=== PATIENT | female | born 1940 | race Two or more races ===

== ENCOUNTER → 2024-08-01 | Outpatient (CLI) | payer MEDICARE, MEDICAID, SELFPAY ==
--- NOTE | 2024-08-01 11:15 | XR_ITS ---
Examination: Screening digital mammography, bilateral Computer aided detection 3-D breast Tomosynthesis, bilateral Date and time of exam: August 01, 2024 1108 hours Compared to mammograms dating to December 27, 2008 Indication: Screening Technique: Nonmagnified MLO, CC views of the breasts to been obtained, reconstructed from 3-D Tomosynthesis images. R2 computer aided detection program utilized for evaluation of suspicious masses and/or abnormal calcifications. 3-D Tomosynthesis images obtained. Findings: The breasts are heterogeneously dense, which may obscure small masses Benign calcifications. No interval suspicious masses Impression: BI-RADS category II: Benign Findings. Recommend 1 year follow-up mammogram.
== END | disposition home or self-care (01) ==
LOC: CDIM 11:00
PROVIDERS: Referring Provider Family Medicine; Visit Provider Family Medicine
DX: Z12.31 Encounter for screening mammogram for malignant neoplasm of breast (principal); R92.323 Mammographic fibroglandular density, bilateral breasts; R92.1 Mammographic calcification found on diagnostic imaging of breast
CPT/HCPCS: 77063; 77067

== ENCOUNTER 2025-01-04 20:34 | Inpatient (IN) | payer MEDICARE, MEDICAID, SELFPAY ==
[2025-01-04] VITALS (7 sets, daily range): BP systolic 158–178; BP diastolic 79–86; PULSE 85–102; RESP 14–99; TEMP 36.6–36.8; O2SAT 99–100; BMI 22.8
--- NOTE | 2025-01-04 20:45 | EDNOTE_ITS ---
Neuro Symptoms Deficit-RME/HPI General Chief Complaint: Neuro Symptoms/Deficit Stated Complaint: NUMBNESS TO FACE AND RIGHT LEG Time Seen by Provider: 01/04/25 20:46 Arrival date/time: 01/04/25 20:34 RME / HPI RME / HPI Narrative: DR. LONGORIA MAIN ED EVALUATION: 84 y/o female with Hx of HTN, CVA, and Aneurysm presents to ED c/o numbness to the tongue and oral cavity, pins and needles to the RLE, and possible right- sided weakness x just over 8.5 hours. Patient is on mediaction for HTN. No other concerns or complaints expressed at this time. Related Data Home Medications ?Medication ?Instructions ?Recorded ?Confirmed meloxicam 15 mg tablet 1 tab PO QDWM ##0 07/13/13 0 05/16/19 methimazole 5 mg tablet 1 tab PO BID ##0 07/13/13 misoprostol 200 mcg tablet 1 tab PO BID ##0 07/13/13 0 05/16/19 phenytoin sodium extended 100 mg 1 cap PO TID ##0 03/0 11/1905/16/19 capsule aspirin 81 mg chewable tablet 81 mg PO DAILY 05/16/19 09/13/21 calcium 600 mg (as 1 tab PO QDAY 05/16/1905/16 carbonate)-vitamin D3 20 mcg (800 unit) tablet (Caltrate with Vitamin D3) lorazepam 1 mg tablet 1 mg PO [id number] PRN Seizures 05/16/19 05/16/19 raloxifene 60 mg tablet 60 mg PO QDAY 05/16/1905/16 Allergies Allergy/AdvReac Type Severity Reaction Status Date / Time No Known Allergies Allergy Verified 09/13/21 21:44 Review of Systems Review of Systems Systems Reviewed: All systems reviewed, normal except as documented Past Medical History Past Medical History NEUROLOGIC: Positive Cerebrovascular Accident, Seizures and Epilepsy CARDIAC: Positive Aneurysm and Hypertension MUSCULOSKELETAL: Positive Arthritis ENDOCRINE: Positive Hyperthyroidism and Hypothyroidism OTHER HISTORY: Positive Hospitalization ED Exam Narrative Physical exam: Generally patient is alert elderly appearing female, eyes pupils equal round reactive to light face shows no facial asymmetry, neck shows no bruits, heart regular rate and rhythm, lungs clear to auscultation ankle bilaterally, abdomen soft bowel sounds present's and nontender, neurologic exam shows no facial asymmetry. Patient has no demonstrable focal motor deficits. Extremities show no edema. Course Course Course Narrative: CXR was ordered for determining the etiology of shortness of breath. 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 01/04/25 20:47 Active Continuous Pulse Oximetry NOW Care 01/04/25 20:47 Completed EKG (ED ONLY) *Do not use* NOW Care 01/04/25 20:47 Completed In and Out Catheter NEEDED Care 01/04/25 20:47 Active Insert IV NOW Care 01/04/25 20:47 Active NIH Stroke Scale now Care 01/04/25 20:47 Active NPO NOW Care 01/04/25 20:47 Active Neuro Check Q1HR Care 01/04/25 20:47 Active Nurse Swallow Screen x1 Care 01/04/25 20:47 Active Consult to Neurology / Tele-Neurology Routine Cons 01/04/25 20:[address] angio stroke protocol Stat Exams 01/04/25 20:[address] stroke protocol Stat Exams 01/04/25 20:47 Completed EKG (ED Only) Stat Exams 01/04/25 20:47 Ordered XR chest 1V portable Stat Exams 01/04/25 20:47 Taken CBC Stat Lab 01/04/25 20:53 Completed Comprehensive Metabolic Panel Stat Lab 01/04/25 20:53 Completed Drug Screen,Urine Stat Lab 01/04/25 20:47 Ordered Magnesium Stat Lab 01/04/25 20:53 Completed Partial Thromboplastin Time Stat Lab 01/04/25 20:53 Completed Prothrombin Time with INR Stat Lab 01/04/25 20:53 Completed Troponin I Stat Lab 01/04/25 20:53 Completed Urinalysis, C/S if Indicated Stat Lab 01/04/25 20:47 Ordered Aspirin Med 01/04/25 21:34 Discontinued 325 mg PO X1 ONE Clopidogrel [Plavix] Med 01/04/25 21:34 Discontinued 300 mg PO X1 ONE Ondansetron Inj [Zofran Inj] Med 01/04/25 20:47 Active 4 mg IVP Q4HR PRN Oxygen Delivery NOW RT 01/04/25 20:47 Active Vital Signs Vital signs: Vital Signs Temperature 98.2 F 01/04/25 20:48 Pulse Rate 102 H 01/04/25 20:48 Respiratory Rate 16 01/04/25 20:48 Blood Pressure 158/79 H 01/04/25 20:48 Pulse Oximetry (%) 99 01/04/25 20:48 Oxygen Delivery Method Room Air 01/04/25 20:48 Neuro Symptoms / Deficit MDM Narrative MDM Narrative:: Scribe Attestation: I, Masha Mathews, am scribing for and in the presence of Dr. Longoria. Provider Notation: Although this document has been carefully reviewed, there may still be some phonetic and other typographical errors. These errors are purely grammatical due to imperfections in the software program and should not be construed in any way to? compromise the substance of the patient's medical care during this visit. I am seeing this patient approximately 8 hours and 45 minutes since her last known normal. Stroke alert was called. Head CT was negative. CT angio of the head and neck showed no large vessel occlusion. Blood sugar was 83. Blood pressure is 156/73. Patient was seen and evaluated by the stroke neurologist who recommends giving the patient aspirin and loading with 300 mg of Plavix p.o. Plavix and aspirin were ordered for the patient here in the emergency room. I discussed this case with the hospitalist and the patient will be admitted the hospital for further treatment and evaluation and undergo MRI in the morning. I interpreted all labs. EKG done at 8:48 PM shows sinus tachycardia at a rate of [address] segment elevation. There is very slight ST segment depression in leads V5 and V6. Patient data External records reviewed:: [facility] previous records (Reviewed prior ED records from 04/29/22. Patient was seen for Seizures.) Clinical information provided by:: patient and family Social determinants that could affect healthcare access:: none Patient has the following chronic illnesses:: Seizures, Epilepsy, Hypertension, Arthritis, Hypothyroidism How is presenting disease/condition affected by chronic disease/condition?: exacerbated by Evaluation data The following diagnostics were reviewed and interpreted by me:: lab results, radiology exam(s) and EKG tracing(s) Lab and/or radiology exams considered but not ordered:: None Interpretation Summary: RADIOLOGY Head/Brain CT: Findings: No significant ventricular enlargement. Low-density area in the left frontal parietal lobe evident on the prior CT scan, axial image 16, September 23, 2021 Intra-axial or extra-axial hemorrhage density is not seen. No mass effect or midline shift Basal cisterns are not remarkable. Fourth ventricle is midline. Cranial vault intact. Impression: No interval acute hemorrhage, mass effect or midline shift compared to September 13, 2021 Consider brain MRI MRA without contrast, stroke protocol, follow-up. Head/Neck CTA: Findings: Thyromegaly with numerous bilateral thyroid nodules No significant common carotid carotid bifurcation or internal carotid artery stenoses. Dominant left vertebral artery in the neck with no critical stenoses Intracranial vertebral arteries basilar artery posterior cerebral branches fill with no large vessel occlusions Juxtasellar internal carotid arteries demonstrate moderate calcification No large vessel occlusions involving M1 segments middle cerebral arteries trifurcation middle cerebral arteries or anterior cerebral arteries Impression: No significant neck arterial stenoses No cerebral large vessel arterial occlusions or thrombus Chest X-Ray: Medications / Prescriptions Medications or Prescriptions considered but not ordered:: None Medication administrations:: Medication Administration History Ondansetron HCl (Ondansetron Inj 2 Mg/Ml Inj 2 Ml) 4 mg IVP Q4HR PRN PRN Reason: NAUSEA OR VOMITING Stop: 02/03/25 20:46 Discontinued Medications Aspirin (Aspirin 325 Mg Tablet) 325 mg PO X1 ONE Stop: 01/04/25 21:35 Clopidogrel Bisulfate (Clopidogrel Bisulfate 75 Mg Tablet) 300 mg PO X1 ONE Stop: 01/04/25 21:35 See above if any. Consultations Consultation(s) initiated? (list below): Yes Consultation #1 (Physician, Specialty, Details): Tele-neurologist made aware of the patient?s HPI, PMHx, lab and/or radiology results. Discussed treatment plan. Time: 21:27 Consultation #2 (Physician, Specialty, Details): Hospitalist made aware of the patient?s HPI, PMHx, lab and/or radiology results. Treatment plan was discussed. Will admit for further evaluation and management. Accepts patient for admission. Time: 21:35 Diagnosis Neuro Differential Diagnosis: delirium, subarachnoid hemorrhage, peripheral neuropathy, cerebrovascular accident and transient cerebral ischemia Most likely diagnosis given after review of the tests above:: None Admission Indicated Admission indicated?: indicated Admission Request Was there a request for admission?: Yes Admission Attestation Admission request attestation: Discussed case with [] from Hospitalist service regarding admission. Discussed patients ED course, exam findings, labs, and radiology results. The Hospitalist [agrees,declines] to accept the patient for admission. Disposition Plan Disposition Plan: Admit Critical Care Time Critical Care Time Critical Care Time: Yes Total Critical Care Time (min.): 35 Attestation: Excluding other billable procedures Discharge Plan Plan Patient Disposition: Admit Acute Care w/in Hospital Prescriptions/Referrals Prescriptions/Med Rec: No Action phenytoin sodium extended 100 MG capsule 1 cap PO TID Qty: 0 meloxicam 15 MG tablet 1 tab PO QDWM Qty: 0 misoprostol 200 MCG tablet 1 tab PO BID Qty: 0 methimazole 5 MG tablet 1 tab PO BID Qty: 0 lorazepam 1 mg Tablet 1 mg PO [id number] PRN (Reason: Seizures) aspirin 81 mg Tablet,Chewable 81 mg PO DAILY raloxifene 60 mg Tablet 60 mg PO QDAY calcium carbonate-vitamin D3 [Caltrate with Vitamin D3] 600 mg(1,500mg) -800 unit Tablet 1 tab PO QDAY Referrals: Xavier Hayward MD [Primary Care Provider] - In 1 week Problem List Clinical Impression: Acute CVA (cerebrovascular accident) Patient/Caregiver Discharge Instructions Print Language: Irish Stand Alone Forms: Amry Ann Award Info., Patient Portal Info Letter
--- NOTE | 2025-01-04 20:47 | XR_ITS ---
Examination: AP chest single view Technique: AP portable upright chest single view, comparison July 30, 2016 Indications: Stroke alert, chest pain shortness of breath today. Findings: No aspiration pneumonia No pulmonary edema Stable prominent superior mediastinum Significant osteopenia Impression: Negative for aspiration pneumonia
--- NOTE | 2025-01-04 20:47 | EKG_ITS ---
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
--- NOTE | 2025-01-04 20:47 | XR_ITS ---
Examination: CT brain head without contrast. 2-D sagittal coronal reconstructions Date and time of exam:January 04, 2025, 2058 hrs., Comparison September 13, 2021 Indications: Stroke alert, onset numbness to the face and right leg dizziness weakness beginning 9 hours ago CTDI: vol (mGy):45.4 DLP: (mGycm):898 Technique: Multiple CT axial sections of the brain have been obtained, 5 mm slice thickness. Contrast has not been administered. 2-D sagittal, coronal reconstructions have been obtained Low dose protocols were performed. One or more of the following dose reduction techniques were used; automated exposure control, adjustment of the mA and/or KV according to patient size, use of iterative reconstruction technique. Findings: No significant ventricular enlargement. Low-density area in the left frontal parietal lobe evident on the prior CT scan, axial image 16, September 23, 2021 Intra-axial or extra-axial hemorrhage density is not seen. No mass effect or midline shift Basal cisterns are not remarkable. Fourth ventricle is midline. Cranial vault intact. Impression: No interval acute hemorrhage, mass effect or midline shift compared to September 13, 2021 Consider brain MRI MRA without contrast, stroke protocol, follow-up
--- NOTE | 2025-01-04 20:47 | XR_ITS ---
Examination: CTA carotids with intravenous contrast CTA brain, head with intravenous contrast. 2-D sagittal, coronal reconstructions. 3-D reconstructions. Exam date and time: January 04, 2025, 2100 hrs. Indications: Stroke alert, onset focal neurologic deficit including numbness right face and right leg weakness dizziness beginning 9 hours ago. CTDI: vol (mGy) 16.85 DLP: (mGycm) 511 Technique: Multiple CTA axial brain, head carotid images post intravenous contrast injection 75 cc, [id number]. 2-D sagittal, coronal reconstructions. 3-D reconstructions, 3-D post processing including vascular maximum intensity projection images. Low dose protocols were performed. One or more of the following dose reduction techniques were used; automated exposure control, adjustment of the mA and/or KV according to patient size, use of iterative reconstruction technique. Findings: Thyromegaly with numerous bilateral thyroid nodules No significant common carotid carotid bifurcation or internal carotid artery stenoses. Dominant left vertebral artery in the neck with no critical stenoses Intracranial vertebral arteries basilar artery posterior cerebral branches fill with no large vessel occlusions Juxtasellar internal carotid arteries demonstrate moderate calcification No large vessel occlusions involving M1 segments middle cerebral arteries trifurcation middle cerebral arteries or anterior cerebral arteries Impression: No significant neck arterial stenoses No cerebral large vessel arterial occlusions or thrombus
--- NOTE | 2025-01-04 20:47 | PC.NURSE ---
Case Consult 01/04/2025 20:46:46 [facility] Case # [id number] has been created.
[2025-01-04 21:13] LABS: Basophils # (Auto) 0.0 Thou/mm3 (0.0-0.2); Basophils % (Auto) 0 % (0-2.5); Eosinophils # (Auto) 0.0 Thou/mm3 (0.0-0.5); Eosinophils % (Auto) 1 % (0-10); Hematocrit 34.4 % (36.0-46.0); Hemoglobin 11.8 g/dL (12.0-16.0); Immature Granulocytes Auto 0.02 Thou/mm3 (0.00-0.00); Lymphocytes # (Auto) 1.6 Thou/mm3 (1.0-4.8); Lymphocytes % (Auto) 28 % (10-50); Mean Corpuscular HGB Conc 34.3 g/dl (31.0-37.0); Mean Corpuscular Hemoglobin 31.1 pg (25.0-35.0); Mean Corpuscular Volume 91 fL (80-100); Monocytes # (Auto) 0.5 Thou/mm3 (0.0-0.8); Monocytes % (Auto) 8 % (0-12); Neutrophils # (Auto) 3.6 Thou/mm3 (1.8-7.7); Neutrophils % (Auto) 63 % (37-80); Nucleated Red Blood Cell # 0.00 Thou/mm3 (0.00-0.00); Nucleated Red Blood Cell % 0 /100 WBC (0); Platelet Count 102 Thou/mm3 (140-440); RDW Standard Deviation 41.1 fL (36.4-46.3); Red Blood Count 3.80 Miln/mm3 (4.00-5.20); White Blood Count 5.7 Thou/mm3 (3.6-11.0)
[2025-01-04 21:25] LABS: INR 0.9 (0.9-1.3); Partial Thromboplastin Time 20.2 Seconds (22.0-36.0); Prothrombin Time 10.4 Seconds (9.0-12.2)
[2025-01-04 21:30] LABS: Alanine Aminotransferase < 7 U/L (10-49); Albumin, Serum 4.2 gm/dL (3.4-4.8); Albumin/Globulin Ratio 1.5 (1.2-2.2); Alkaline Phosphatase 134 U/L (46-116); Anion Gap 8 (7-16); Aspartate Amino Transferase 31 U/L (0-34); BUN/Creatinine Ratio 7 Ratio (12-20); Bilirubin,Total 0.3 mg/dL (0.3-1.2); Blood Urea Nitrogen < 5 mg/dL (9-23); Calcium 9.7 mg/dL (8.3-10.6); Calcium (Corrected) 9.7 mg/dL (8.5-10.1); Carbon Dioxide 25.7 mMol/L (20.0-31.0); Chloride 102 mMol/L (98-107); Creatinine (Component) 0.7 mg/dL (0.6-1.3); Estimated Creatinine Clearance 43.7 mL/min (>60); Globulin 2.8 gm/dL (2.3-3.5); Glucose 79 mg/dL (74-106); Magnesium 1.9 mg/dL (1.6-2.6); Osmolality,Calculated 268 (275-295); Potassium 4.2 mMol/L (3.4-5.1); Sodium 136 mMol/L (136-145); Total Protein 7.0 gm/dL (5.7-8.2); Troponin I < 0.020 ng/mL (0.0-0.045); eGFR > 60 See Note
--- NOTE | 2025-01-04 21:31 | PD.TNEURO ---
Tele Neuro Consultation Consultation Date 01/04/25 Most Recent Vital Signs Last Vital Signs Temp 98.2 F 01/04/25 20:48 Pulse 89 01/04/25 20:56 Resp 16 01/04/25 20:48 BP 158/79 H 01/04/25 20:48 Pulse Ox 99 01/04/25 20:48 O2 Del Method Room Air 01/04/25 20:48 Laboratory-Coagulation Panel PT 10.4 Seconds (9.0-12.2) 01/04/25 20:53 INR 0.9 (0.9-1.3) 01/04/25 20:53 APTT 20.2 Seconds (22.0-36.0) L 01/04/25 20:53 Consultation Narrative [facility] Patient Name:???Annabelle Almaraz Date of :???1940 Identification Number:??? Date of Service:???01/04/2025 20:46:46 Diagnosis: ?G45.9 - Transient cerebral ischemic attack, unspecified Impression: ?84 yo F with history of stroke (with baseline aphasia per family) and epilepsy who presented for evaluation of acute onset of dizziness and right-sided numbness/weakness. Her symptoms improved, and her neurologic exam was grossly unremarkable (other than chronic disorientation and mild anomia). Overall, her symptoms are suggestive of possible resolving stroke/TIA. Recommend initiation of DAPT and admission for further stroke/TIA workup s discussed below. Our recommendations are outlined below. Recommendations: ? Stroke/Telemetry Floor ? Neuro Checks (Q4) ? Bedside Swallow Eval ? DVT Prophylaxis ? IV Fluids, Normal Saline ? Head of Bed 30 Degrees ? Euglycemia and Avoid Hyperthermia (PRN Acetaminophen) ? Bolus with Clopidogrel 300 mg bolus x1 and initiate dual antiplatelet therapy with Aspirin 81 mg daily and Clopidogrel 75 mg daily ? Antihypertensives PRN if Blood pressure is greater than 220/120 or there is a concern for End organ damage/contraindications for permissive HTN. If blood pressure is greater than 220/120 give labetalol PO or IV or Vasotec IV with a goal of 15% reduction in BP during the first 24 hours. ?Routine MRI brain without contrast to evaluate for acute stroke ?TTE to assess for intracardiac abnormalities ?Telemetry to monitor for occult arrhythmias ?Lipid panel and hemoglobin A1c to assess for modifiable stroke risk factors Sign Out: ? Discussed with Emergency Department Provider Advanced Imaging: CTA Head and Neck Completed. LVO:No Patient is not a candidate for NILDA Metrics: Last Known Well: 01/04/2025 12:00:00 Dispatch Time: 01/04/2025 20:46:46 Arrival Time: 01/04/2025 20:34:00 Initial Response Time: 01/04/2025 20:48:02Symptoms: right-sided numbness/weakness and dizziness. Initial patient interaction: 01/04/2025 21:13:10 NIHSS Assessment Completed: 01/04/2025 21:22:31Patient is not a candidate for Thrombolytic. Thrombolytic Medical Decision: 01/04/2025 21:22:32Patient was not deemed candidate for Thrombolytic because of following reasons: LKW outside 4.5 hr window. . Stroke severity too mild (non-disabling) . CT Head: I personally reviewed all the CT images that were available to me and it showed: no acute hemorrhage, though there was note of chronic subcortical left frontal hypodensity (noted on prior CT head from 2021) Primary Provider Notified of Diagnostic Impression and Management Plan on: 01/04/2025 21:29:17 History of Present Illness:Patient is a 84 year old Female. Patient was brought by private transportation with symptoms of right-sided numbness/weakness and dizziness. Patient was last known normal around 12 PM this afternoon. Around that time, patient reported acute onset of dizziness (though is uncertain if this was a spinning sensation) and right-sided numbness/weakness affecting the right tongue and right hemibody. She also told family that she was having a mild headache around the time of symptom onset. She denied any history of similar symptoms and further denied any associated headache, speech changes (though family does report chronic intermittent aphasia), vision changes, or left-sided deficits. At the time of my evaluation, patient reported that her dizziness and right-sided deficits had nearly resolved. Past Medical History: ?Hypertension ?Stroke ?Seizures Medications: No Anticoagulant use? Antiplatelet use:?Yes?ASA Reviewed EMR for current medications Allergies:? NKDA Social History: Smoking: No Alcohol Use: No Drug Use: No Family History: There is no family history of premature cerebrovascular disease pertinent to this consultation ROS : 14 Points Review of Systems was performed and was negative except mentioned in HPI. Past Surgical History: There Is No Surgical History Contributory To Today?s Visit Examination: BP(158/79),?Pulse(102), 1A: Level of Consciousness - Alert; keenly responsive?+ 0 1B: Ask Month and Age - Could Not Answer Either Question Correctly?+ 2 1C: Blink Eyes & Squeeze Hands - Performs Both Tasks?+ 0 2: Test Horizontal Extraocular Movements - Normal?+ 0 3: Test Visual Luis - No Visual Loss?+ 0 4: Test Facial Palsy (Use Grimace if Obtunded) - Normal symmetry?+ 0 5A: Test Left Arm Motor Drift - No Drift for 10 Seconds?+ 0 5B: Test Right Arm Motor Drift - No Drift for 10 Seconds?+ 0 6A: Test Left Leg Motor Drift - No Drift for 5 Seconds?+ 0 6B: Test Right Leg Motor Drift - No Drift for 5 Seconds?+ 0 7: Test Limb Ataxia (FNF/Heel-De [place]) - No Ataxia?+ 0 8: Test Sensation - Normal; No sensory loss?+ 0 9: Test Language/Aphasia - Mild-Moderate Aphasia: Some Obvious Changes, Without Significant Limitation?+ 1 10: Test Dysarthria - Normal?+ 0 11: Test Extinction/Inattention - No abnormality?+ 0 NIHSS Score:?3 NIHSS Free Text :?Chronic mild anomia and disorientation per family Pre-Morbid Modified Horatio Scale: 2 Points = Slight disability; unable to carry out all previous activities, but able to look after own affairs without assistance Spoke with :?Dr. Evans This consult was conducted in real time using interactive audio and video technology. Patient was informed of the technology being used for this visit and agreed to proceed. Patient located in hospital and provider located at home/office setting. Patient is being evaluated for possible acute neurologic impairment and high probability of imminent or life-threatening deterioration. I spent total of 40 minutes providing care to this patient, including time for face to face visit via telemedicine, review of medical records, imaging studies and discussion of findings with providers, the patient and/or family. Dr Jose Chaudhari [facility] For Inpatient follow-up with [facility] physician please call [facility] at . As we are not an outpatient service for any post hospital discharge needs please contact the hospital for assistance. If you have any questions for the [facility] physicians or need to reconsult for clinical or diagnostic changes please contact us via [facility] at .
[2025-01-04 22:03] LABS: Collection Type, Urine Voided
[2025-01-04] MEDS: CLOPIDOGREL BISULFATE 75 MG TABLET 300 MG PO (22:04)
[2025-01-04 22:10] LABS: Bilirubin,Urine Negative (Negative); Blood,Urine Negative (Negative); Clarity,Urine Clear (Clear/Hazy); Color,Urine Colorless (Lt Yel-Yel); Culture Indicated,Urine Not Indicated; Glucose, Urine Negative (Negative); Ketones,Urine Negative (Negative); Leukocyte Esterase,Urine Negative (Negative); Nitrite,Urine Negative (Negative); PH,Urine 6.5 (5.0-7.0); Protein,Urine Negative (Neg - Trace); RBC,Urine < 1 /hpf (0-3); Specific Gravity,Urine 1.014 (1.001-1.035); Squamous Epithelial Cell,Urine < 1 /hpf (0-5); Urobilinogen,Urine Negative mg/dL (0.0-1.0); WBC,Urine 3 /hpf (0-5)
[2025-01-04 22:16] LABS: Amphetamine/Methamp Scrn,U Negative (Negative); Barbiturate Screen,Urine Negative (Negative); Benzodiazepines Screen,Urine Negative (Negative); Benzoylecgonine Screen, Ur Negative (Negative); Fentanyl Screen,Urine Negative (Negative); Opiate Screen,Urine Negative (Negative); THC Screen,Urine Negative (Negative)
--- NOTE | 2025-01-04 22:26 | PD.RESHP ---
Documentation for date of: 01/04/25 HPI History of Present Illness History of present illness: (Both patient and daughter, who was present at time of interview, are [place]-speaking. 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 Of note, she was last seen in the ED on 04/29/22 for a seizure episode lasting 5 minutes that was witnessed by daughter when patient was asleep. Per daughter, patient's current right-sided neurological symptoms began around 4 or 6 PM today (though ED physician reports that patient was in the ED since 12 PM). These symptoms are described as numbness, weakness, and a sensation of pins and needles . She also says that the patient later developed numbness and paresthesia in the left leg as well. Daughter denies witnessing any seizure-like activity recently. Regarding patient's current presentation, daughter says that patient had a similar episode many years ago (10+) as well as episodes of speech incoherence that happen around once per month and self-resolve after about a minute. At the time of interview, patient did not endorse experiencing any of her admitting symptoms and daughter said that patient did not seem significantly altered from baseline. Patient also denied any associated headache, chest pain, SOB, or urinary incontinence. She follows up with her neurologist, Dr. Marinelli, in the outpatient setting. In the ED, vitals showed: BP 158/79 HR 102 RR 16 Temp 98.2 SpO2 99% on room air ED Course: CBC showed Hgb 11.8 (MCV 91, RDW 41.1) and platelet count 102 but was otherwise WNL. Coagulation panel showed APTT 20.2 but was otherwise WNL. CMP showed slightly elevated alkaline phosphatase 134 but was otherwise WNL. UA was unremarkable. UTox was negative for all substances. Imaging: Head CT showed no interval acute hemorrhage, mass effect, or midline shift compared to 09/13/21. It also showed a low-density area in the left frontal parietal lobe that was also previously seen on 09/23/21. Head neck CTA showed no significant neck arterial stenoses and no cerebral large vessel arterial occlusions or thrombus. It also showed thyromegaly with numerous bilateral thyroid nodules and some moderate calcification of the juxtasellar internal carotid arteries. EKG showed sinus rhythm with a nonspecific ST and T-wave abnormality and normal QTc 421. CXR showed significant osteopenia but was negative for aspiration pneumonia. In the ED, patient was given PO aspirin 325 mg x1 and PO clopidogrel bisulfate 300 mg x1 and started on IV 1 L NS maintenance fluid @ 75 mL/hr. Patient was admitted for the work-up and management of neurological symptoms necessitating stroke r/o. Neurology (Dr. Marinelli) was consulted. Review of Systems Review of Systems Narrative Review of Systems: General: Denies fevers or chills HEENT: Denies congestion or sore throat Heart: Denies chest pain or palpitations Lungs: Denies shortness of breath or cough Abdomen: Denies abdominal pain, nausea, vomiting, constipation, diarrhea, or blood in stool Genitourinary: Denies frequency, urgency, dysuria, or hematuria Neurology: Endorses right-sided numbness, paresthesia, and weakness of face, arm, and leg. Endorses aforementioned symptoms that were later onset of the left leg as well. Denies any changes in vision or difficulty speaking Review of systems otherwise negative except what is mentioned above. 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 Marinelli), HTN on lisinopril, hypothyroidism (but currently on methimazole), and osteoarthritis PSH: 1991 surgery for the head (assumed to be for past CVA but daughter was unsure) performed in [place] Medications: misoprostol 200 mcg BID, pregabalin 25 mg BID, raloxifene 60 mg qD, meloxicam 15 mg qD, lisinopril 10 mg qD, methimazole 5 mg qD, aspirin 81 mg qD, vitamin D3, amitriptyline 15 mg qHS, cenobamate 150 mg qD Allergies: NKDA FH: neither daughter nor patient knew much about patient's family history SH: lives in [place] in a house w/ daughter and 6 other family members, uses a cane to ambulate but needs to be held up sometimes due to weakness, can shower and perform other ADLs independently, no history of smoking, drinking, or recreational drug use Exam Vital Signs Temp Pulse Resp BP Pulse Ox O2 Del Method 98.2 F 101 H 21 H 178/86 H 99 Room Air 01/04/25 20:48 01/04/25 22:00 01/04/25 22:00 01/04/25 22:00 01/04/25 22:00 01/04/25 22:00 Narrative Exam Physical Exam: General: Alert, no acute distress. Skin: Warm, dry, intact, no obvious rash. Head: Healed cicatrix on the top of head. Normocephalic, atraumatic. Eye: Normal conjunctiva, PERRL. Throat: Oral mucosa moist. Cardiovascular: Tachycardic rate and rhythm, no murmur, normal peripheral perfusion, no edema. Respiratory: Lungs are clear to auscultation, respirations non-labored, no crackles, no wheezing. Gastrointestinal: Soft, nontender, non-distended. Psychiatric: Cooperative, appropriate affect. Neuro: Mental status: Alert and oriented to name and location only, appropriately responding to commands. Speech/Language: Could not adequately assess due to interview being conducted through an hourly sign language interpreter and daughter acting as primary historian (per chart, patient seems to have baseline aphasia). No dysarthria noted. Memory: Grossly recent and remote intact. Cranial Nerves: II: No visual deficits and visual heller full to confrontation. Pupils symmetric in size and BL round. III, IV, : EOMI, no nystagmus, no ptosis, no APD, smooth pursuit without saccadic intrusion, conjugate horizontal gaze intact. V: Gross sensation intact in V1, V2 and V3 distribution to crude touch. Jaw strength normal. VII: No facial asymmetry, able to smile symmetrically and BL good eye closure. VIII: Hearing intact in both ears per finger rubbing. IX, X: Symmetrical palate elevation, uvula in midline. XI: Symmetrical head rotation and shoulder shrug. IX, XII: Midline tongue protrusion. No fasciculations or atrophy noted. Sensory examination Crude touch in bilateral upper and lower extremity grossly intact. Motor examination No drift in bilateral upper extremity 5/5 strength in bilateral upper extremity 5/5 strength in bilateral lower extremity No David's or ankle clonus NIHSS Score: 1 Results: Labs 01/04/25 20:53 01/04/25 20:53 Labs: Short CBC 01/04/25 Range/Units 20:53 WBC 5.7 (3.6-11.0) Thou/mm3 Hgb 11.8 L (12.0-16.0) g/dL Hct 34.4 L (36.0-46.0) % Plt Count 102 L (140-440) Thou/mm3 BMP 01/04/25 20:53 Sodium 136 Potassium 4.2 Chloride 102 Carbon Dioxide 25.7 BUN < 5 L Creatinine 0.7 Glucose 79 Calcium 9.7 Cardiac Enzymes 01/04/25 Range/Units 20:53 Troponin I < 0.020 (0.0-0.045) ng/mL Liver Function 01/04/25 Range/Units 20:53 Total Bilirubin 0.3 (0.3-1.2) mg/dL AST 31 (0-34) U/L ALT < 7 L (10-49) U/L Alkaline Phosphatase 134 H (46-116) U/L Albumin 4.2 (3.4-4.8) gm/dL Urine 01/04/25 Range/Units 21:57 Urine Color Colorless A (Lt Yel-Yel) Urine Clarity Clear (Clear/Hazy) Urine pH 6.5 (5.0-7.0) Ur Specific Stella 1.014 (1.001-1.035) Urine Protein Negative (Neg - Trace) Urine Glucose (UA) Negative (Negative) Quality Measures Quality Measures VTE prophylaxis and stroke Suspected type of Stroke: Unknown at this time Last known well (date): 01/04/25 Last known well (time): 12:00 Tenecteplase given: Reason(s) Tenecteplase not given: Outside the time window not given Rehab services: PT evaluation ordered and Speech Language Pathology eval ordered VTE Prophylaxis: pharmaceutical (Lovenox) Antithrombotic by day 2:: not indicated (describe) (patient outside of tPA timeframe) Statin ordered: >75 y/o moderate or high intensity dose (atorvastatin) Anticoagulation ordered for A-fib or flutter (current or hx): ordered (heparin) Advance care planning discussed with:: patient and child (daughter) Medications Home Medications and Allergies Home Medications ?Medication ?Instructions ?Recorded ?Confirmed ?Type meloxicam 15 mg tablet 1 tab PO QDWM ##0 07/13/13 01/05/25 History methimazole 5 mg tablet 1 tab PO BID ##0 07/13/13 01/05/25 History misoprostol 200 mcg tablet 1 tab PO BID ##0 07/13/13 01/05/25 History aspirin 81 mg chewable tablet 81 mg PO DAILY 05/16/19 01/05/25 History calcium 600 mg (as 1 tab PO QDAY 05/16/19 01/05/25 History carbonate)-vitamin D3 20 mcg (800 unit) tablet (Caltrate with Vitamin D3) raloxifene 60 mg tablet 60 mg PO QDAY 05/16/19 01/05/25 History amitriptyline 25 mg tablet 25 mg PO HS 01/05/25 01/05/25 History cenobamate 150 mg tablet 150 mg PO QDAY 01/05/25 01/05/25 History lisinopril 20 mg tablet 20 mg PO QDAY 01/05/25 01/05/25 History pregabalin 25 mg capsule (Lyrica) 25 mg PO BID 01/05/25 01/05/25 History Allergies Allergy/AdvReac Type Severity Reaction Status Date / Time No Known Allergies Allergy Verified 09/13/21 21:44 Visit Medications Ondansetron HCl (Ondansetron Inj 2 Mg/Ml Inj 2 Ml) 4 mg IVP Q4HR PRN PRN Reason: NAUSEA OR VOMITING Stop: 02/03/25 20:46 Discontinued Medications Aspirin (Aspirin 325 Mg Tablet) 325 mg PO X1 ONE Stop: 01/04/25 21:35 Last Admin: 01/04/25 22:04 Dose: 325 mg Clopidogrel Bisulfate (Clopidogrel Bisulfate 75 Mg Tablet) 300 mg PO X1 ONE Stop: 01/04/25 21:35 Last Admin: 01/04/25 22:04 Dose: 300 mg Assessment & Plan Plan Annabelle Almaraz is a 84-year-old F with a 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 Marinelli), HTN on lisinopril, hypothyroidism (but currently on methimazole), and osteoarthritis who presents today with a chief complaint of right-sided weakness and paresthesia of face, arm, and leg. Patient was admitted for the work-up and management of neurological symptoms necessitating stroke r/o. 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 Patient initially presented with right-sided weakness and paresthesia of face, arm, and leg (beginning around 4 or 6 PM today) as well as later onset of the same symptoms in the left leg Head CT showed no interval acute hemorrhage, mass effect, or midline shift compared to previous imaging from 09/13/21 Head/neck CTA showed no significant neck arterial stenoses and no cerebral large vessel arterial occlusions or thrombus During physical exam, patient did not exhibit any focal neurological deficits (symmetric, normal strength and sensation bilaterally) and had no new symptoms or complaints Labs were largely unremarkable, CK was not elevated Working DX: transient cerebral ischemic attack (TIA), supported by: 1. focal neurologic symptoms lasting less than 24 hours before self-resolving 2. absence of persistent neurologic deficits in the setting of negative findings on head imaging Differential DX: Saroj's paralysis 2/2 focal or generalized seizure, hemiplegic migraine, minor ischemic stroke NIHSS Score: 1 Diagnostic Inquiry -Brain MRI (also added PO ATIVAN 0.5 mg q8HR prn which can be given during imaging as patient is claustrophobic) -Echo with bubble study to assess for PFO -EEG to monitor for any seizure activity -Ordered Neurology consult (Dr. Marinelli) -Lipid panel Treatment Plan -Dual-antiplatelet regimen: PO ASPIRIN 81 mg qD, PO CLOPIDOGREL 75 mg qD -High-intensity statin: PO ATORVASTATIN 40 mg x1 (can consider scheduling a statin) -Per neurology recommendations, 1 L IV NS maintenance fluid @ 75 mL/hr -Allowing for permissive hypertension per stroke r/o protocol -Neuro checks q4HR -Continuous cardiac telemetry monitoring -Stroke precautions -Head of bed elevation: 30 degrees -Speech referral -PT referral #History of seizure disorder #History of cerebral aneurysm, s/p 1991 surgery Patient was last seen in the ED on 04/29/22 for a seizure of 5 minute's duration despite compliance with anti-epileptic regimen On this most recent admission, daughter denied witnessing any seizure-like activity Diagnostic Inquiry -EEG to monitor for any seizure activity -Ordered Neurology consult (Dr. Marinelli) Treatment Plan -Restarted patient's home medications: PO CENOBAMATE 150 mg qD, PO PREGABALIN 25 mg BID -Neuro checks q4HR -Seizure precautions #Hypertension During interview, patient's blood pressure was noted to be in the 180s/90s with HR in the 100s Patient did not complain of any headache or discomfort and seemed to be asymptomatic Diagnostic Inquiry -No current recommendation Treatment Plan -Allowing for permissive hypertension per stroke r/o protocol -IV LABETALOL 10 mg x1 prn for BP>220/120 or concern for end organ damage, goal of 15% reduction in BP within first 24 hours -Holding home medication: PO LISINOPRIL 10 mg qD #Hypothyroidism Per chart review, patient has history of hypothyroidism Head neck CTA showed thyromegaly with numerous bilateral thyroid nodules EKG and physical exam were unremarkable Diagnostic Inquiry -TSH Treatment Plan -Restarted home medication: PO METHIMAZOLE 5 mg qD #Normocytic anemia #Thrombocytopenia Upon admission, Hgb 11.8 (MCV 91, RDW 41.1), platelet count 102 Hgb is relatively unchanged from previous admission in 04/29/22 but platelet count seems lower than baseline (200+) Diagnostic Inquiry -Iron panel Treatment Plan -No current recommendation #Other medical problems #Osteopenia -CXR this admission showed significant osteopenia (outpatient follow-up) Hospital Management: Disposition: awaiting brain MRI w/o contrast tomorrow morning to r/o ischemic stroke Diet: NPO GI Prophylaxis: none Bowel Prophylaxis: Senna DVT Prophylaxis: Lovenox CODE STATUS: Full Code I have examined the patient and conferred with my attending, Dr. Dukes, and my senior resident, Dr. Purdy, regarding them. Marco Reddy DO PGY-1 Internal Medicine Attending Provider Attestation/Addendum After examination of the patient and review of the clinical data I feel that this patient needs admission to the hospital for further treatment/evaluation. I have discussed and was present for the essential components of the history, physical examination, diagnosis, and treatment plan with the resident. I agree with the patient's care as documented by the resident and amended herein by me. Indra Dukes DO. Although this document has been carefully reviewed, there may still be some phonetic and other typographical errors. These errors are purely grammatical due to imperfections in the software program and should not be construed in any way to compromise the substance of the patient's medical care during this visit. Patient seen and evaluated in the ED in short, patient is an 84-year-old female with a significant past medical history of seizure and hypothyroidism who presented to the ED for acute onset onset of right-sided numbness/weakness, and dizziness which began approximately 8.5 hours prior to coming to the ED and has improved since time of admission. In the ED, initial blood pressure 158/79 mmHg, pulse 102, patient afebrile on room air, SpO2 99%. CBC largely unremarkable with exception of a platelet count of 102. Patient was also anemic with a hemoglobin 11.8 which she has had in the past. CMP largely unremarkable, UA and U tox are still pending. CT head and CTA head and neck were negative for any acute intracranial pathology to include ICH or ischemic stroke. Chest x-ray was ordered however is pending. Patient's last echo was in January 2023 with normal LV size and function, EF 55 to 60%. Teleneuro was consulted in the ED. Neuroexam largely unremarkable from our standpoint. Patient admitted to acute telemetry for possible TIA versus seizure. Patient placed on aspirin and Plavix for teleneurology recommendations, permissive hypertension in place. MRI brain and TTE ordered. A1c, lipid panel and TSH also ordered, all stroke precautions have been ordered, in-house neurology has been consulted and we will form an EEG for any potential underlying seizure activity. Will continue to monitor closely
[2025-01-04 23:13] LABS: Glucose Estimated Average 108 mg/dL (80-131); Hemoglobin A1C 5.4 % Hgb (4.8-6.0)
[2025-01-04] MEDS: SODIUM CHLORIDE 0.9% 1000 ML 1,000 ML 75 ML IV (23:55)
[2025-01-05] VITALS (7 sets, daily range): BP systolic 113–169; BP diastolic 57–96; PULSE 63–100; RESP 17–98; TEMP 36–36.4; O2SAT 93–99; BMI 21.9
--- NOTE | 2025-01-05 | XR_ITS ---
Examinations: MRI Brain without intravenous contrast. MRA brain without intravenous contrast. MRA carotids without intravenous contrast 3-D vascular reconstructions Date and time of exam: January 05, 2025, 1055 hrs. Indications: Onset facial numbness and right leg numbness as well as dizziness and weakness beginning yesterday Technique: Multiple axial and sagittal images of the brain have been obtained MRA brain carotid images without contrast obtained, including 3-D postprocessing, vascular maximum intensity projection images Findings: Sellaturcica is not enlarged. The optic chiasm and infundibular stalk are not remarkable. Prepontine and interpeduncular cisterns are not enlarged. No localized enlargement of the medulla or terrence. Fourth ventricle and cerebellar tonsils normal in position. Subacute hemorrhage is not seen. Fourth ventricle is midline. Mass in the cerebellopontine angle region is not evident. 7th and 8th nerve complexes exhibits symmetry. Globes are symmetrical with no retro-orbital mass. Increased white matter signal moderate, including old infarct left parietal lobe Diffusion-weighted images demonstrate no focus of restricted diffusion Mass-effect upon the ventricular system is not identified. MRA carotid images degraded by patient motion. MRA brain images no large vessel occlusions Impression: Negative for acute hemorrhage mass effect or midline shift. No acute infarct Moderate chronic microvascular white matter change. No cerebral large vessel arterial occlusions.
[2025-01-05 00:09] LABS: Creatine Kinase 37 U/L (34-171)
[2025-01-05] MEDS: PREGABALIN 25 MG CAPSULE PO ×3 (00:56→21:15)
[2025-01-05] MEDS: ATORVASTATIN CALCIUM 20 MG TABLET 40 MG PO ×2 (00:56→21:15)
[2025-01-05 05:38] LABS: Basophils # (Auto) 0.0 Thou/mm3 (0.0-0.2); Basophils % (Auto) 0 % (0-2.5); Eosinophils # (Auto) 0.0 Thou/mm3 (0.0-0.5); Eosinophils % (Auto) 0 % (0-10); Hematocrit 34.7 % (36.0-46.0); Hemoglobin 11.9 g/dL (12.0-16.0); Immature Granulocytes Auto 0.02 Thou/mm3 (0.00-0.00); Lymphocytes # (Auto) 1.1 Thou/mm3 (1.0-4.8); Lymphocytes % (Auto) 25 % (10-50); Mean Corpuscular HGB Conc 34.3 g/dl (31.0-37.0); Mean Corpuscular Hemoglobin 31.2 pg (25.0-35.0); Mean Corpuscular Volume 91 fL (80-100); Monocytes # (Auto) 0.4 Thou/mm3 (0.0-0.8); Monocytes % (Auto) 9 % (0-12); Neutrophils # (Auto) 3.0 Thou/mm3 (1.8-7.7); Neutrophils % (Auto) 65 % (37-80); Nucleated Red Blood Cell # 0.00 Thou/mm3 (0.00-0.00); Nucleated Red Blood Cell % 0 /100 WBC (0); Platelet Count 214 Thou/mm3 (140-440); RDW Standard Deviation 41.0 fL (36.4-46.3); Red Blood Count 3.82 Miln/mm3 (4.00-5.20); White Blood Count 4.5 Thou/mm3 (3.6-11.0)
[2025-01-05 06:24] LABS: Alanine Aminotransferase < 7 U/L (10-49); Albumin, Serum 3.9 gm/dL (3.4-4.8); Albumin/Globulin Ratio 1.8 (1.2-2.2); Alkaline Phosphatase 124 U/L (46-116); Anion Gap 9 (7-16); Aspartate Amino Transferase 18 U/L (0-34); BUN/Creatinine Ratio 7 Ratio (12-20); Bilirubin,Total 0.3 mg/dL (0.3-1.2); Blood Urea Nitrogen < 5 mg/dL (9-23); Calcium 9.9 mg/dL (8.3-10.6); Calcium (Corrected) 10.0 mg/dL (8.5-10.1); Carbon Dioxide 26.0 mMol/L (20.0-31.0); Cardiac Risk Estimate 3.0 RATIO (3.7-5.6); Chloride 108 mMol/L (98-107); Cholesterol 198 mg/dL (132-200); Creatinine (Component) 0.7 mg/dL (0.6-1.3); Estimated Creatinine Clearance 43.7 mL/min (>60); Globulin 2.2 gm/dL (2.3-3.5); Glucose 80 mg/dL (74-106); HDL Cholesterol 65 mg/dL (40-60); LDL Cholesterol,Calculated 122 mg/dL (0-130); Osmolality,Calculated 281 (275-295); Potassium 3.5 mMol/L (3.4-5.1); Sodium 143 mMol/L (136-145); Thyroid Stimulating Hormone 3.52 uIU/mL (0.55-4.78); Total Protein 6.1 gm/dL (5.7-8.2); Triglycerides 57 mg/dL (30-150); eGFR > 60 See Note
[2025-01-05 06:40] LABS: Ferritin 32 ng/mL (7.3-270.7); Iron 52 mcg/dL (50-170); Percent Iron Saturation 19 % (20-55); Total Iron Binding Capacity 268 mcg/dL (250-425); Unsaturated Iron Binding 216 (225-295)
[2025-01-05 07:46] LABS: Free T4 (Free Thyroxine) 0.95 ng/dL (0.89-1.76)
[2025-01-05] MEDS: METHIMAZOLE 5 MG TABLET PO (09:00)
[2025-01-05] MEDS: ASPIRIN EC 81 MG TABEC PO (09:01)
[2025-01-05] MEDS: ENOXAPARIN SOD INJ 40 MG/0.4 ML SYRINGE SC (09:01)
[2025-01-05] MEDS: CENOBAMATE 150 MG PO (09:01)
[2025-01-05] MEDS: CLOPIDOGREL BISULFATE 75 MG TABLET PO (09:01)
[2025-01-05] MEDS: PANTOPRAZOLE 20 MG TABLET PO (09:08)
--- NOTE | 2025-01-05 09:24 | PCS.ST ---
Swallow Evaluation completed. No dysphagia. OK for regular diet consistencies.
[2025-01-05] MEDS: RALOXIFENE 60 MG TABLET PO (09:45)
--- NOTE | 2025-01-05 12:12 | ESPR_ITS ---
<Statement entered by Rachel Marsh MD - 01/05/25 12:36> I have reviewed the note and agree with the resident's assessment & plan with exceptions as below. I have personally reviewed labs, imaging, home meds/prior records, examined the patient, formulated and discussed management plan with the IM team. Patient examined at bedside today. No acute overnight events. Patient to get MRI for further evaluation of stroke rule out. 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 Will cancel echo as patient is 84 years old and previous echoes have not shown positive bubble study and PFO closure surgically is typically not indicated after the age of 75. Will continue with dual antiplatelet therapy. Neurology on consult, appreciate recommendations. Patient does have history of hypothyroidism, however TSH and T4 within normal limits, but patient is also taking methimazole and this was dated back to 2017. Will need to clarify with patient in regards to thyroid medicines. Repeat hematology and chemistry in the a.m. Rachel Marsh, PGY-2 Internal Medicine Documentation for date of: 01/05/25 Subjective Subjective Interval history: No acute events overnight. Patient seen and examined at bedside with family present as well as a nurse helping with translating. Vitals and labs reviewed. Patient and family state that her symptoms have gone away and have not come back since taking the initial medication of aspirin and clopidogrel. Patient denies fever, chest pain, shortness of breath. Exam Vital Signs Temp Pulse Resp BP Pulse Ox O2 Del Method 96.9 F 82 20 154/83 H 98 Room Air 01/05/25 08:00 01/05/25 09:05 01/05/25 09:05 01/05/25 08:00 01/05/25 08:00 01/05/25 08:00 Narrative Exam General: Alert, no acute distress. Skin: Warm, dry, intact, no obvious rash. Head: Healed cicatrix on the top of head. Normocephalic, atraumatic. Eye: Normal conjunctiva, PERRL. Throat: Oral mucosa moist. Cardiovascular: Regular rate and rhythm, no murmur, normal peripheral perfusion, no edema. Respiratory: Lungs are clear to auscultation, respirations non-labored, no crackles, no wheezing. Gastrointestinal: Soft, nontender, non-distended. Psychiatric: Cooperative, appropriate affect. Neuro: Mental status: Alert and oriented to name and location only, appropriately responding to commands. Speech/Language: Could not adequately assess due to interview being conducted through an foreign language interpreter and daughter acting as primary historian (per chart, patient seems to have baseline aphasia). No dysarthria noted. Memory: Grossly recent and remote intact. Cranial Nerves: II: No visual deficits and visual heller full to confrontation. Pupils symmetric in size and BL round. III, IV, : EOMI, no nystagmus, no ptosis, no APD, smooth pursuit without saccadic intrusion, conjugate horizontal gaze intact. V: Gross sensation intact in V1, V2 and V3 distribution to crude touch. Jaw strength normal. VII: No facial asymmetry, able to smile symmetrically and BL good eye closure. VIII: Hearing intact in both ears per finger rubbing. IX, X: Symmetrical palate elevation, uvula in midline. XI: Symmetrical head rotation and shoulder shrug. IX, XII: Midline tongue protrusion. No fasciculations or atrophy noted. Sensory examination Crude touch in bilateral upper and lower extremity grossly intact. Motor examination No drift in bilateral upper extremity 5/5 strength in bilateral upper extremity 5/5 strength in bilateral lower extremity No David's or ankle clonus NIHSS Score: 1 Objective Labs 01/05/25 04:42 01/05/25 04:42 Labs: Laboratory Results - last 24 hr 01/04/25 01/04/25 01/05/25 20:53 21:57 04:42 WBC 5.7 4.5 RBC 3.80 L 3.82 L Hgb 11.8 L 11.9 L Hct 34.4 L 34.7 L MCV 91 91 MCH 31.1 31.2 MCHC 34.3 34.3 RDW Std Deviation 41.1 41.0 Plt Count 102 L 214 D Neut % (Auto) 63 65 Lymph % (Auto) 28 25 [place] % (Auto) 8 9 Eos % (Auto) 1 0 Baso % (Auto) 0 0 Neut # (Auto) 3.6 3.0 Lymph # (Auto) 1.6 1.1 [place] # (Auto) 0.5 0.4 Eos # (Auto) 0.0 0.0 Baso # (Auto) 0.0 0.0 Immature Gran # (Auto) 0.02 H 0.02 H Absolute Nucleated RBC 0.00 0.00 Immature Gran % 0 0 Nucleated RBC % 0 0 PT 10.4 INR 0.9 APTT 20.2 L Sodium 136 143 Potassium 4.2 3.5 D Chloride 102 108 H Carbon Dioxide 25.7 26.0 Anion Gap 8 9 BUN < 5 L < 5 L Creatinine 0.7 0.7 Estim Creat Clear Calc 43.7 L 43.7 L eGFR > 60 > 60 BUN/Creatinine Ratio 7 L 7 L Glucose [address] Glu mg/dL 108 Hemoglobin A1c 5.4 Calculated Osmolality 268 L 281 Calcium 9.7 9.9 Corrected Calcium 9.7 10.0 Magnesium 1.9 Iron 52 TIBC 268 Iron Saturation 19 L Unsat Iron Binding 216 L Ferritin 32 Total Bilirubin 0.3 0.3 AST 31 18 ALT < 7 L < 7 L Alkaline Phosphatase 134 H 124 H Total Creatine Kinase 37 Troponin I < 0.020 Total Protein 7.0 6.1 Albumin 4.2 3.9 Globulin 2.8 2.2 L Albumin/Globulin Ratio 1.5 1.8 Triglycerides 57 Cholesterol 198 LDL Cholesterol, Calc 122 HDL Cholesterol 65 H Cholesterol/HDL Ratio 3.0 L TSH 3.52 Free T4 0.95 Ur Collection Type Voided Urine Color Colorless A Urine Clarity Clear Urine pH 6.5 Ur Specific [place] 1.014 Urine Protein Negative Urine Glucose (UA) Negative Urine Ketones Negative Urine Blood Negative Urine Nitrite Negative Urine Bilirubin Negative Urine Urobilinogen (Auto) Negative Ur Leukocyte Esterase Negative Urine RBC < 1 Urine WBC 3 Ur Squamous Epith Cells < 1 Urine Bacteria None Ur Culture Indicated? Not Indicated Urine Opiates Screen Negative Urine Fentanyl Screen Negative Ur Barbiturates Screen Negative U Amphetamin/Meth Scrn Negative U Benzodiazepines Scrn Negative U Cocaine Metab Screen Negative U Marijuana (THC) Screen Negative Quality Measures Quality Measures VTE prophylaxis and stroke Suspected type of Stroke: Unknown at this time Last known well (date): 01/04/25 Last known well (time): 12:00 Tenecteplase given: Reason(s) Tenecteplase not given: Outside the time window not given Rehab services: PT evaluation ordered VTE Prophylaxis: pharmaceutical Antithrombotic by day 2:: not indicated (describe) Statin ordered: >75 y/o moderate or high intensity dose Anticoagulation ordered for A-fib or flutter (current or hx): not indicated Advance care planning discussed with:: patient Assessment & Plan Assessment Current Active Medications: Generic Name Dose Route Start Last Admin Trade Name Aimeq PRN Reason Stop Dose Admin Acetaminophen 650 mg 01/04/25 22:26 Acetaminophen 325 Mg Tablet PO 02/03/25 22:25 Q6H PRN PAIN SCALE 1-3 (mild Al Hydrox/Mg Hydrox/Simethicone 30 ml 01/04/25 22:49 Mg Hyd/Al Hyd/Ayanna (Maalox Reg) Susp 30 Ml Udc PO 02/03/25 22:48 Q4HR PRN Heartburn or Upset Stomach Amitriptyline HCl 25 mg 01/05/25 21:00 Amitriptyline Hcl 25 Mg Tablet PO 02/04/25 20:59 HS EARL Aspirin 81 mg 01/05/25 09:00 01/05/25 09:01 Aspirin Ec 81 Mg Tabec PO 02/04/25 08:59 81 mg QDAY EARL Administration Atorvastatin Calcium 40 mg 01/05/25 21:00 Atorvastatin Calcium 20 Mg Tablet PO 02/04/25 20:59 HS EARL Clopidogrel Bisulfate 75 mg 01/05/25 09:00 01/05/25 09:01 Clopidogrel Bisulfate 75 Mg Tablet PO 02/04/25 08:59 75 mg QDAY EARL Administration Cenobamate 150mg 0 ea 01/05/25 09:00 01/05/25 09:01 Tablet (Xcopri) PO 02/04/25 08:59 1 tablet DAILY EARL Administration Enoxaparin Sodium 40 mg 01/05/25 09:00 01/05/25 09:01 Enoxaparin Sod Inj 40 Mg/0.4 Ml Syringe SC 01/19/25 08:59 40 mg QDAY EARL Administration Labetalol HCl 10 mg 01/04/25 22:44 Labetalol Inj 5 Mg/Ml Vial 20 Ml IVP 02/03/25 22:43 X1 PRN Hypertensive Emergency Lorazepam 0.5 mg 01/05/25 04:22 01/05/25 10:28 Lorazepam 0.5 Mg Tablet PO 01/10/25 04:21 0.5 mg Q8HR PRN Administration ANXIETY Methimazole 5 mg 01/05/25 09:00 01/05/25 09:00 Methimazole 5 Mg Tablet PO 02/04/25 08:59 5 mg DAILY EARL Administration Ondansetron HCl 4 mg 01/04/25 20:47 Ondansetron Inj 2 Mg/Ml Inj 2 Ml IVP 02/03/25 20:46 Q4HR PRN NAUSEA OR VOMITING Pantoprazole Sodium 20 mg 01/05/25 09:00 01/05/25 09:08 Pantoprazole 20 Mg Tablet PO 02/04/25 08:59 20 mg QDAY EARL Administration Pregabalin 25 mg 01/05/25 00:30 01/05/25 09:00 Pregabalin 25 Mg Capsule PO 02/04/25 00:29 25 mg BID EARL Administration Raloxifene HCl 60 mg 01/05/25 09:00 01/05/25 09:45 Raloxifene 60 Mg Tablet PO 02/04/25 08:59 60 mg QDAY EARL Administration Sennosides 1 tab 01/04/25 22:26 Senna Tablet PO 02/03/25 22:25 QDAY PRN constipation Protocol Plan Annabelle Almaraz is a 84-year-old F with a 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 Marinelli), HTN on lisinopril, hypothyroidism (but currently on methimazole), and osteoarthritis who presents today with a chief complaint of right-sided weakness and paresthesia of face, arm, and leg. Patient was admitted for the work-up and management of neurological symptoms necessitating stroke r/o. 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 Patient initially presented with right-sided weakness and paresthesia of face, arm, and leg (beginning around 4 or 6 PM today) as well as later onset of the same symptoms in the left leg Head CT showed no interval acute hemorrhage, mass effect, or midline shift compared to previous imaging from 09/13/21 Head/neck CTA showed no significant neck arterial stenoses and no cerebral large vessel arterial occlusions or thrombus During physical exam, patient did not exhibit any focal neurological deficits (symmetric, normal strength and sensation bilaterally) and had no new symptoms or complaints Labs were largely unremarkable, CK was not elevated Working DX: transient cerebral ischemic attack (TIA), supported by: 1. focal neurologic symptoms lasting less than 24 hours before self-resolving 2. absence of persistent neurologic deficits in the setting of negative findings on head imaging Differential DX: Saroj's paralysis 2/2 focal or generalized seizure, hemiplegic migraine, minor ischemic stroke NIHSS Score: 1 Diagnostic Inquiry -Brain MRI Pending (PO ATIVAN 0.5 mg q8HR prn clostrophobia) -Echo cancelled 2/2 age >75 and previous negative echo bubble study for PFO -EEG to monitor for any seizure activity -Neurology consult (Dr. Marinelli), appreciate recs Treatment Plan -Dual-antiplatelet regimen: PO ASPIRIN 81 mg qD, PO CLOPIDOGREL 75 mg qD -High-intensity statin: PO ATORVASTATIN 40 mg qd -Allowing for permissive hypertension per stroke r/o protocol -Neuro checks q4HR -Continuous cardiac telemetry monitoring -Stroke precautions -Head of bed elevation: 30 degrees -Speech referral -PT referral #History of seizure disorder #History of cerebral aneurysm, s/p 1992 surgery Patient was last seen in the ED on 04/29/22 for a seizure of 5 minute's duration despite compliance with anti-epileptic regimen On this most recent admission, daughter denied witnessing any seizure-like activity Diagnostic Inquiry -EEG to monitor for any seizure activity -Ordered Neurology consult (Dr. Marinelli) Treatment Plan -Restarted patient's home medications: PO CENOBAMATE 150 mg qD, PO PREGABALIN 25 mg BID -Neuro checks q4HR -Seizure precautions #Hypertension During interview, patient's blood pressure was noted to be in the 180s/90s with HR in the 100s Patient did not complain of any headache or discomfort and seemed to be asymptomatic Diagnostic Inquiry -No current recommendation Treatment Plan -Allowing for permissive hypertension per stroke r/o protocol -IV LABETALOL 10 mg x1 prn for BP>220/120 or concern for end organ damage, goal of 15% reduction in BP within first 24 hours -Holding home medication: PO LISINOPRIL 10 mg qD #Hypothyroidism Per chart review, patient has history of hypothyroidism Head neck CTA showed thyromegaly with numerous bilateral thyroid nodules EKG and physical exam were unremarkable Diagnostic Inquiry -TSH normal Treatment Plan -Will hold PO METHIMAZOLE 5 mg qD #Normocytic anemia #Thrombocytopenia Upon admission, Hgb 11.8 (MCV 91, RDW 41.1), platelet count 102 Hgb is relatively unchanged from previous admission in 04/29/22 but platelet count seems lower than baseline (200+) Iron panel: N iron, N TIBC, N Ferritin; Iron sat 19%, Unsat Iron binding 216. Diagnostic Inquiry -none currently Treatment Plan -No current recommendation #Other medical problems #Osteopenia -CXR this admission showed significant osteopenia (outpatient follow-up) Hospital Management: Disposition: awaiting brain MRI w/o contrast tomorrow morning to r/o ischemic stroke Diet: NPO, regular after MRI GI Prophylaxis: none Bowel Prophylaxis: Senna DVT Prophylaxis: Lovenox CODE STATUS: Full Code Patient plan of care was discussed with the attending physician, Dr. Randolph & senior resident Dr. Salma Ha MD PGY-1 Attending Provider Attestation/Addendum I reviewed labs, imaging, EKG, home medications and prior available records. Face to face evaluation was performed by me. I have personally examined the patient and discussed assessment and plan with the IM team. I reviewed the resident note and agree with the plan with exceptions as below. CVA symptoms, right-sided weakness/paresthesia History of brain aneurysm s/p surgery History of seizures Subclinical hypothyroidism Essential hypertension Follow-up brain MRI Continue neurochecks every 4 hours Started aspirin, Plavix, and atorvastatin Allow permissive hypertension Monitor thyroid function in 4 to 6 weeks
--- NOTE | 2025-01-05 13:42 | PC.PT ---
PT eval only. Patient was xI with bed mobility, transfers, and ambulation using no AD. Patient is safe to ambulate to the bathroom with no AD and 1 staff assist for safety due to her history of seizures. RN made aware.
[2025-01-05] MEDS: GABAPENTIN 100 MG CAPSULE PO ×2 (16:17→21:15)
[2025-01-05] MEDS: AMITRIPTYLINE HCL 25 MG TABLET PO (21:15)
--- NOTE | 2025-01-05 23:10 | VVPN_ITS ---
Telemedicine visit statement This visit was conducted with the use of interactive audio and video telecommunications system that permits real time communication between the patient and the provider. Patient's verbal consent for virtual visit was obtained on 01/05/25 at 2310. Documentation for date of: 01/05/25 Virtual exam Vital Signs Temp Pulse Resp BP Pulse Ox O2 Del Method 97.5 F 92 19 123/61 98 Room Air 01/05/25 20:00 01/05/25 20:00 01/05/25 20:00 01/05/25 20:00 01/05/25 20:00 01/05/25 20:00 Objective Labs 01/05/25 04:42 01/05/25 04:42 Labs: Laboratory Results - last 24 hr 01/04/25 01/05/25 20:53 04:42 WBC 4.5 RBC 3.82 L Hgb 11.9 L Hct 34.7 L MCV 91 MCH 31.2 MCHC 34.3 RDW Std Deviation 41.0 Plt Count 214 D Neut % (Auto) 65 Lymph % (Auto) 25 [place] % (Auto) 9 Eos % (Auto) 0 Baso % (Auto) 0 Neut # (Auto) 3.0 Lymph # (Auto) 1.1 [place] # (Auto) 0.4 Eos # (Auto) 0.0 Baso # (Auto) 0.0 Immature Gran # (Auto) 0.02 H Absolute Nucleated RBC 0.00 Immature Gran % 0 Nucleated RBC % 0 Sodium 143 Potassium 3.5 D Chloride 108 H Carbon Dioxide 26.0 Anion Gap 9 BUN < 5 L Creatinine 0.7 Estim Creat Clear Calc 43.7 L eGFR > 60 BUN/Creatinine Ratio 7 L Glucose [address] Glu mg/dL 108 Hemoglobin A1c 5.4 Calculated Osmolality 281 Calcium 9.9 Corrected Calcium 10.0 Iron 52 TIBC 268 Iron Saturation 19 L Unsat Iron Binding 216 L Ferritin 32 Total Bilirubin 0.3 AST 18 ALT < 7 L Alkaline Phosphatase 124 H Total Creatine Kinase 37 Total Protein 6.1 Albumin 3.9 Globulin 2.2 L Albumin/Globulin Ratio 1.8 Triglycerides 57 Cholesterol 198 LDL Cholesterol, Calc 122 HDL Cholesterol 65 H Cholesterol/HDL Ratio 3.0 L TSH 3.52 Free T4 0.95
[2025-01-06] VITALS: BP 130/70; PULSE 73; PULSE 76; RESP 21; TEMP 36.6; O2SAT 97
--- NOTE | 2025-01-06 01:46 | PC.NURSE ---
Spoke to Farm RT regarding EEG, per RT [facility] nobody can do it tonight but she will pass it on to morning RT.
--- NOTE | 2025-01-06 02:20 | PC.NURSE ---
Pt transferred from room 271 to room 366, alert and oriented, no C/O of pain at this time. Pt is ambulatory with minimal assist.
[2025-01-06 04:00] VITALS: BP 154/83; PULSE 81; RESP 16; TEMP 36.1; O2SAT 97
[2025-01-06] MEDS: GABAPENTIN 100 MG CAPSULE PO (05:20)
[2025-01-06 05:26] LABS: Basophils # (Auto) 0.0 Thou/mm3 (0.0-0.2); Basophils % (Auto) 0 % (0-2.5); Eosinophils # (Auto) 0.0 Thou/mm3 (0.0-0.5); Eosinophils % (Auto) 0 % (0-10); Hematocrit 37.1 % (36.0-46.0); Hemoglobin 12.5 g/dL (12.0-16.0); Immature Granulocytes Auto 0.02 Thou/mm3 (0.00-0.00); Lymphocytes # (Auto) 1.3 Thou/mm3 (1.0-4.8); Lymphocytes % (Auto) 25 % (10-50); Mean Corpuscular HGB Conc 33.7 g/dl (31.0-37.0); Mean Corpuscular Hemoglobin 30.9 pg (25.0-35.0); Mean Corpuscular Volume 92 fL (80-100); Monocytes # (Auto) 0.5 Thou/mm3 (0.0-0.8); Monocytes % (Auto) 10 % (0-12); Neutrophils # (Auto) 3.4 Thou/mm3 (1.8-7.7); Neutrophils % (Auto) 65 % (37-80); Nucleated Red Blood Cell # 0.00 Thou/mm3 (0.00-0.00); Nucleated Red Blood Cell % 0 /100 WBC (0); Platelet Count 190 Thou/mm3 (140-440); RDW Standard Deviation 41.9 fL (36.4-46.3); Red Blood Count 4.05 Miln/mm3 (4.00-5.20); White Blood Count 5.3 Thou/mm3 (3.6-11.0)
[2025-01-06 06:09] LABS: Alanine Aminotransferase < 7 U/L (10-49); Albumin, Serum 3.6 gm/dL (3.4-4.8); Albumin/Globulin Ratio 1.7 (1.2-2.2); Alkaline Phosphatase 114 U/L (46-116); Anion Gap 11 (7-16); Aspartate Amino Transferase 19 U/L (0-34); BUN/Creatinine Ratio 12 Ratio (12-20); Bilirubin,Total 0.3 mg/dL (0.3-1.2); Blood Urea Nitrogen 7 mg/dL (9-23); Calcium 10.0 mg/dL (8.3-10.6); Calcium (Corrected) 10.3 mg/dL (8.5-10.1); Carbon Dioxide 24.5 mMol/L (20.0-31.0); Chloride 107 mMol/L (98-107); Creatinine (Component) 0.6 mg/dL (0.6-1.3); Estimated Creatinine Clearance 51.0 mL/min (>60); Globulin 2.1 gm/dL (2.3-3.5); Glucose 85 mg/dL (74-106); Magnesium 1.9 mg/dL (1.6-2.6); Osmolality,Calculated 280 (275-295); Phosphorous 3.1 mg/dL (2.4-5.1); Potassium 3.7 mMol/L (3.4-5.1); Sodium 142 mMol/L (136-145); Total Protein 5.7 gm/dL (5.7-8.2); eGFR > 60 See Note
--- NOTE | 2025-01-06 07:55 | PC.SS ---
PRISON WARDEN conducted bedside contact with the patient conduct initial assessment and to discuss discharge planning.? At bedside with patient was daughter, Dinora Calderon.? Patient is Citizen Of [place] speaking.? Daughter provided information for assessment and discharge planning.? Patient resides at home with daughter.? Patient does not utilize DME to assist with ambulation. Patient does not utilize home oxygen.? Patient does not require assistance with the completion of ADL?s.? ??Patient?s medical surrogate decision maker is daughter, Dinora Calderon.? Patient?s PCP is Dr. Hayward.? The patient does not possess any specialty providers.? The patient does not participate with dialysis.? Patient utilizes [facility] for medication services.? Discharge plan is for the patient to return home at the time of discharge.? Family will provide transportation on behalf of the patient.? No further intervention required at this time, social director will be available to address any further concerns.? Next of Kin: Dinora Calderon D/C Plan: Home
[2025-01-06 08:00] VITALS: BP 162/95; PULSE 87; RESP 17; TEMP 36.1; O2SAT 98
[2025-01-06] MEDS: PANTOPRAZOLE 20 MG TABLET PO (08:59)
[2025-01-06] MEDS: CENOBAMATE 150 MG PO (08:59)
[2025-01-06] MEDS: RALOXIFENE 60 MG TABLET PO (08:59)
[2025-01-06] MEDS: CLOPIDOGREL BISULFATE 75 MG TABLET PO (08:59)
[2025-01-06] MEDS: PREGABALIN 25 MG CAPSULE PO (08:59)
[2025-01-06] MEDS: ASPIRIN EC 81 MG TABEC PO (08:59)
[2025-01-06] MEDS: ENOXAPARIN SOD INJ 40 MG/0.4 ML SYRINGE SC (08:59)
--- NOTE | 2025-01-06 11:46 | ESDS_ITS ---
<Statement entered by Valery Horn MD - 01/06/25 16:41> Patient was seen and examined at bedside. Patient symptoms has resolved. The neurologist Dr Marinelli believe that the patient might have small mini seizures that caused her symptoms. For that reason we increased the patient Xcopri from 150 to 200 mg p.o. daily. Patient was in Keppra however apparently she did not tolerate the medication. Patient was instructed to follow-up with the neurologist Dr Marinelli within 1 week from discharge. - Patient's plan and care discussed with my attending, Dr. Tomasa Horn MD Internal Medicine PGY-3 Planned Discharge Date 01/06/25 DS: Providers Provider Date of admission: 01/04/25 22:38 Primary care physician: Xavier Hayward MD Admitting Provider: Paulo Dukes DO Attending Provider on Admission: Paulo Dukes DO Consults: 01/04/25 20:47 Consult to Neurology / Tele-Neurology Routine Comment: Consulting Provider: [facility] 01/04/25 23:32 Consult to Neurology / Tele-Neurology Routine Comment: Stroke rule out Consulting Provider: Jose Luis Marinelli 01/04/25 23:36 Referral Physical Therapy Routine Comment: Physician Instructions: 01/05/25 08:53 Referral Speech Therapy Routine Comment: Attending Provider on DC: Jaydon Randolph MD Discharging Provider: Jaydon Randolph MD DS: Diagnosis Problem List Completed Was Problem List Reviewed/Reconciled?: Yes Hospital Course Hospital Course Hospital course: Annabelle Almaraz is a 84-year-old F with a PMH of 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 Patient was admitted for the work-up and management of devendra rological symptoms necessitating stroke r/o. Patient's vitals on admission notable for mildly elevated BP and mild tachycardia. Patients labs were notable for mild anemia and mild thrombocytopenia. On imaging, patient's CT of Head was notable only for a low-density area in the left frontal parietal lobe that was also previously seen on 09/23/21. CTA Head/Neck showed thyromegaly with numerous bilateral thyroid nodules and some moderate calcification of the juxtasellar internal carotid arteries. In the ED, patient was intitially given loading dose aspirin, loading dose clopidogrel and was started fluids. Neurology was consulted and recommended MRI and echo. NIHSS score initially of 3. MRI showed Negative for acute hemorrhage mass effect or midline shift; No acute infarct; Moderate chronic microvascular white matter change; No cerebral large vessel arterial occlusions. Echo was not done as previous echos have not shown positive bubble study and PFO closure surgically is typically not indicated after the age of 75. Patient's neurological symptoms did not occur again throughout hospitalization. Patient did not have any seizure activity during hospitalization. Patient's Xcopri dosage was increased to 200 mg p.o. daily. Patient is instructed to follow up with neurologist in 1-2 weeks. Discharge Instructions Follow-up with your primary care physician within 1 week from discharge Follow-up with your neurologist Dr Marinelli within 1 - 2 weeks from discharge Increase the dose of Xcopri to 200 mg p.o. 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 Randolph & resident physician Dr. Justina Ha MD PGY-1 Time Spent with Patient Time attestation: Total time spent providing and/or coordinating discharge services: Time spent: Greater than 30 minutes Quality: Stroke Pt Provided Written Stroke Discharge Instructions: Yes Exam Vital Signs Temp Pulse Resp BP Pulse Ox O2 Del Method 97.0 F 87 17 162/95 H 98 Room Air 01/06/25 08:00 01/06/25 08:00 01/06/25 08:00 01/06/25 08:00 01/06/25 08:00 01/06/25 08:00 Narrative Exam General: No acute distress; A&Ox2 (person, place) Skin: Warm, dry, intact, no obvious rash. HENT: NCAT, EOMI, not icteric. External ears normal. No rhinorrhea. Moist mucous membranes Cardiovascular: Regular rate and rhythm, no murmur, +S1/S2. Respiratory: Lungs CTAB GI: Soft, nontender, non-distended. No guarding or rebound tenderness. Extremities: no edema, no cyanosis, no clubbing. Extremity pulses present Neuro: No focal deficits observed. Conversant, moving all extremities. No overt cerebellar signs/incoordination; appropriately responding to commands. Psychiatric: Cooperative, appropriate affect. Discharge Plan Plan Patient Disposition: HOME (Self Care) Patient condition on transfer: Benefits outweigh risks Care Plan Goals: Discharge instructions: Follow-up with your primary care physician within 1 week from discharge Follow-up with your neurologist Dr Marinelli within 1 - 2 weeks from discharge Increase the dose of Xcopri to 200 mg p.o. daily Use other medication as instructed In case of worsening of your symptoms please return to the ED as soon as possible Prescriptions/Referrals Prescriptions/Med Rec: New atorvastatin 40 mg tablet 40 mg PO QPM 7 Days Qty: 7 0RF cenobamate 200 mg tablet 200 mg PO QDAY 14 Days Qty: 14 0RF Continued meloxicam 15 MG tablet 1 tab PO QDWM Qty: 0 misoprostol 200 MCG tablet 1 tab PO BID Qty: 0 methimazole 5 MG tablet 1 tab PO BID Qty: 0 aspirin 81 mg Tablet,Chewable 81 mg PO DAILY raloxifene 60 mg Tablet 60 mg PO QDAY calcium carbonate-vitamin D3 [Caltrate with Vitamin D3] 600 mg(1,500mg) -800 unit Tablet 1 tab PO QDAY pregabalin [Lyrica] 25 mg capsule 25 mg PO BID cenobamate 150 mg tablet 150 mg PO QDAY Rx Instructions: administer weeks 9 and 10 of therapy lisinopril 20 mg tablet 20 mg PO QDAY amitriptyline 25 mg tablet 25 mg PO HS Referrals: Xavier Hayward MD [Primary Care Provider] - Patient/Caregiver Discharge Instructions Education Materials: Living Well with Epilepsy, ED Seizure, Recurrent (Adult) Print Language: Latvian Stand Alone Forms: [facility] Award Info., Patient Portal Info Letter Discharge Order Discharge Orders: Discharge (Routine); Ordered 01/06/25 Ordered By: Valery Horn Quality Discharge Quality Measures VTE prophylaxis Attestestation MD Attestation I reviewed labs, imaging, EKG, home medications and prior available records. Face to face evaluation was performed by me. I have personally examined the patient and discussed assessment and plan with the IM team. I reviewed the resident note and agree with the plan with exceptions as below. CVA symptoms, right-sided weakness/paresthesia History of brain aneurysm s/p surgery History of seizures Subclinical hypothyroidism Essential hypertension Follow-up brain MRI: Negative for acute Discussed with neurology: May discharge on aspirin and Plavix Increased Xcopri Resume home lisinopril Continue methimazole Monitor thyroid function in 4 to 6 weeks Time spent is 40 minutes. More than 50% of the time was spent on patient education and coordination of care.
[2025-01-06 12:00] VITALS: BP 154/79; PULSE 91; RESP 17; TEMP 36.1; O2SAT 95
--- NOTE | 2025-01-07 11:15 | RESP.EEG ---
Late Entry: EEG complete and ready to read.
== END 2025-01-06 14:06 | disposition home or self-care (01) | DRG 69 ==
LOC: SERX 21:40 → SERHOLD 23:15 → S2NX 01-05 00:22 → S3NX 01-06 02:22
PROVIDERS: Admitting Provider Student in an Organized Health Care Education/Training Program; Emergency Provider Emergency Medicine; PCP Family Medicine; Visit Provider Student in an Organized Health Care Education/Training Program
DX: G45.9 Transient cerebral ischemic attack, unspecified (principal); I10 Essential (primary) hypertension; D64.9 Anemia, unspecified; D69.6 Thrombocytopenia, unspecified; E03.8 Other specified hypothyroidism; G40.909 Epilepsy, unspecified, not intractable, without status epilepticus; E04.2 Nontoxic multinodular goiter; I69.320 Aphasia following cerebral infarction; M19.90 Unspecified osteoarthritis, unspecified site; F40.240 Claustrophobia; M85.80 Other specified disorders of bone density and structure, unspecified site; Z79.82 Long term (current) use of aspirin; Z79.899 Other long term (current) drug therapy
CPT/HCPCS: 36415; 70450; 70496; 70498; 70544; 71045; 80053; 80061; 80307; 81001; 82550; 82728; 83036; 83540; 83550; 83735; 84100; 84439; 84443; 84484; 85025; 85610; 85730; 92610; 93005; 95816; 97162; A4649; J1650; J7030; Q9967; A9270